=== PATIENT | male | born 1960 | race Caucasian/White ===

== ENCOUNTER 2020-08-18 21:41 | Emergency (ER) | payer OTHER, BC ==
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
[2020-08-18] MEDS ORDERED: Sodium Chloride 0.9% 100 ML IV SCH (22:00)
[2020-08-18] MEDS ORDERED: Iopamidol 612 MG/ML 100 ML Bottle IVPUSH ONE (22:34)
[2020-08-18] MEDS ORDERED: Iopamidol 612 MG/ML 50 ML SDV IVPUSH ONE (22:38)
[2020-08-19] MEDS ORDERED: Ondansetron 4 MG Tab.DIS ONE (00:26)
--- NOTE | 2020-08-19 11:09 | CT ---
CT cervical spine Technique: Multiple axial sections were obtained from above the dome of the diaphragm inferiorly. Reconstructed coronal and sagittal images were obtained. Comparison: No prior cervical spine imaging is available. Findings: Fairly severe disc space narrowing is noted at C5-6. Anterior and small posterior osteophytes are seen at this level. Slight osteophytes are seen within the visualized thoracic spine. Mild degenerative change is noted between the dens and anterior arch of C1. Moderate left-sided neural foraminal stenosis is noted at C5-6. Right neural foramen is minimally narrowed. Other neural foramina are widely patent. No acute fracture or abnormal subluxation is seen. Impression: 1. Degenerative change as noted above. 2. No acute fracture or subluxation is seen. Diagnostic code #2 I agree with preliminary report from [facility], finalized on 08/19/20, 12:07 AM CDT
--- NOTE | 2020-08-19 11:19 | CT ---
CT chest Technique: Multiple axial sections were obtained from above the lung apices inferiorly through the lung bases. Intravenous contrast was utilized. Reconstructed coronal and sagittal images were obtained. Findings: No pericardial thickening is seen. Coronary artery calcification is noted. Thoracic aorta shows minimal atherosclerotic change. Slight air is noted within the venous system most likely happening during injection which is incidental. Mediastinum and hilar regions show no adenopathy or mass. No axillary adenopathy is appreciated. Minimal atelectasis and/or scarring is seen within both lung bases. Scattered small pulmonary nodules are seen. Lungs otherwise are clear. Bone window settings were reviewed. Mild scattered degenerative change is seen within the thoracic spine. No acute osseous abnormality is appreciated. Impression: 1. Several small scattered pulmonary nodules. These are most likely benign, however recommend noncontrast chest CT in one year to confirm stability. 2. Nothing acute is otherwise seen on CT study of the chest. Diagnostic code #9 I agree with preliminary report from [facility], finalized on 08/19/20, 12:[address] abdomen and pelvis Technique: Multiple axial sections were obtained from above the dome of the diaphragm inferiorly through the pubic symphysis. Intravenous contrast was utilized. No oral contrast has been given. Delayed images were also obtained through the abdomen and pelvis. Comparison: No prior abdominal imaging is available. Findings: Small low density finding is noted within the right lobe of the liver. This finding almost disappears on the delayed image and is most likely due to a small hemangioma measuring about 7 mm. Liver is otherwise unremarkable. Spleen appears normal. Surgical material is seen within the upper abdomen. Adrenal glands show no nodule. Pancreas shows no discrete abnormality. Gallbladder contains no calcified gallstones. Kidneys show symmetric contrast enhancement. No hydronephrosis or mass is seen. Delayed images show contrast within nondilated ureters. Abdominal aorta shows atherosclerotic calcification which continues into the iliac vessels. No aneurysm is seen. No retroperitoneal adenopathy or mesenteric abnormalities are seen. Minimal density is seen in the subcutaneous fat within the anterior left abdomen presumably due to minimal injury. No pelvic mass or adenopathy is seen. No free fluid or inflammatory change is appreciated. Bone window settings were reviewed which show slight degenerative change within the sacroiliac joints. No acute osseous finding is seen. Impression: 1. Slight density in the fat within the anterior left abdomen most likely representing minimal soft tissue contusion. 2. Small hemangioma likely present within the right lobe of the liver. 3. Nothing acute is otherwise seen on CT study of the abdomen and pelvis. Diagnostic code #2 I agree with preliminary report from [facility], finalized on 0 08/19/20, 12:22 AM CDT
--- NOTE | 2020-08-19 11:26 | CT ---
Head CT Technique: Multiple axial sections through the brain were obtained. Intravenous contrast was not utilized. Reconstructed coronal and sagittal images were obtained. Comparison: No prior intracranial imaging is available. Findings: Ventricles along with basal cisterns and sulci over the convexities are within normal limits for the patient's age. No abnormal parenchymal densities are seen. No evidence of intracranial hemorrhage. No midline shift or mass-effect is seen. Bone window settings were reviewed. Visualized paranasal sinuses and mastoid sinuses show nothing acute. No acute calvarial abnormality is appreciated. Impression: 1. Nothing acute is seen on noncontrast head CT exam. Diagnostic code #1 I agree with preliminary report from [facility], finalized on 08/19/20, 12:04 AM Central Daylight Time
--- NOTE | 2020-08-19 11:28 | CT ---
CT facial bones Technique: Multiple axial sections through the facial bones were obtained. Reconstructed coronal and sagittal images were obtained. Findings: Visualized paranasal sinuses show nothing acute. Visualized mastoid sinuses show nothing acute. No acute fracture is appreciated within the visualized facial bones. Right and left globes are symmetric. No retrobulbar abnormality is appreciated. Impression: 1. Nothing acute is appreciated on CT study of the facial bones. Diagnostic code #1 I agree with preliminary report from [facility], finalized on 08/18/20, 11:53 PM Central Daylight Time
--- NOTE | 2020-08-19 11:42 | CT ---
CT thoracic and lumbar spine Technique: Multiple axial sections were obtained through the thoracic and lumbar spine. Comparison: No prior lumbar or thoracic spine imaging is available. Thoracic spine: Vertebral body heights are maintained. Mild scattered endplate osteophytes are seen.. Minimal scattered disc space narrowing is seen. No acute fracture is seen. No abnormal subluxation is appreciated. Impression: 1. Mild scattered degenerative change. 2. No acute fracture or subluxation is appreciated. Lumbar spine: Vertebral body heights are maintained. Slight posterior disc space narrowing is noted at L3-4 and L4-5. Mild scattered anterior osteophytes are seen. Mild degenerative change is noted within the sacroiliac joints. Slight circumferential disc bulge is noted at L4-5. Slight circumferential disc bulge is noted at L3-4. No bony central or bony neural foraminal stenosis is seen. No acute fracture or abnormal subluxation is appreciated. Impression: 1. Mild degenerative change as noted above. 2. No acute fracture or subluxation is seen. Diagnostic code #2 I agree with preliminary report from [facility], finalized on 08/19/20, 12:11 AM CDT
== END 2020-08-19 00:30 | disposition home or self-care (01) ==
LOC: JD.ED 21:41
DX: S06.0X1A Concussion with loss of consciousness of 30 minutes or less, initial encounter (principal); S01.21XA Laceration without foreign body of nose, initial encounter; V23.4XXA Motorcycle driver injured in collision with car, pick-up truck or van in traffic accident, initial encounter
CPT/HCPCS: 36415; 70450; 70486; 71260; 72125; 72128; 74177; 80053; 80307; 85025; 99285; A9270; Q9967; 99284